=== PATIENT | male | born 1985 | race Hispanic/Latino ===

== ENCOUNTER 2017-06-10 22:05 | Emergency (ER) | payer SELFPAY ==
--- NOTE | 2017-06-10 23:16 | RAD ---
LEFT KNEE FOUR VIEW 06/10/17 HISTORY: Injury. COMPARISON: None. FINDINGS: No significant joint effusion. No acute fracture or malalignment. IMPRESSION: No acute fracture or malalignment. POS: [facility]
[2017-06-10] MEDS ORDERED: Naproxen 500 MG TAB ONE (23:17)
== END 2017-06-10 23:20 | disposition home or self-care (01) ==
LOC: ERS 22:05
DX: S83.92XA Sprain of unspecified site of left knee, initial encounter (principal); W17.89XA Other fall from one level to another, initial encounter

== ENCOUNTER 2017-11-06 09:16 | Outpatient (CLI) | payer OTHER | END 2017-11-06 09:17 | disposition home or self-care (01) | LOC: BICRAD 09:16 | PROVIDERS: ATTEND Internal Medicine | DX: Z02.71 Encounter for disability determination (principal); M51.37 Other intervertebral disc degeneration, lumbosacral region | CPT/HCPCS: 72100 ==

== ENCOUNTER 2017-12-28 20:21 | Emergency (ER) | payer SELFPAY ==
--- NOTE | 2017-12-28 20:53 | RAD ---
RIGHT HAND TWO VIEWS: 12/28/2017 HISTORY: Hand pain. No history of trauma. COMPARISON: 11/22/2014 FINDINGS: Old fractures are seen involving the distal fourth and fifth metacarpals. There is no acute fracture or evidence of dislocation. There is questionable soft tissue swelling near the head of the fifth m etacarpal. No subcutaneous gas or radiopaque foreign body. IMPRESSION: 1. Questionable soft tissue swelling. 2. Old fourth and fifth metacarpal fractures. 3. No acute fracture is seen. POS: [facility]
== END 2017-12-28 21:45 | disposition home or self-care (01) ==
LOC: ERS 20:21
DX: M67.441 Ganglion, right hand (principal)

== ENCOUNTER 2020-08-25 22:03 | Emergency (ER) | payer SELFPAY ==
[2020-08-25] MEDS ORDERED: Lidocaine 1% PF 5 ML VIAL ONE (22:19)
== END 2020-08-25 23:16 | disposition home or self-care (01) ==
LOC: ERS 22:03
DX: L03.115 Cellulitis of right lower limb (principal)
CPT/HCPCS: 10160

== ENCOUNTER 2021-03-05 16:20 | Emergency (ER) | payer SELFPAY ==
[2021-03-06 01:35] LABS: SARS-CoV-2 PCR by NAA Not Detected (NotDetected)
== END 2021-03-05 18:04 | disposition home or self-care (01) ==
LOC: ERS 16:20
DX: R50.9 Fever, unspecified (principal); Z20.822 Contact with and (suspected) exposure to COVID-19
CPT/HCPCS: 99283; U0003; U0005

== ENCOUNTER 2023-02-13 12:14 | Emergency (ER) | payer SELFPAY | END 2023-02-13 13:53 | disposition home or self-care (01) | LOC: ERS 12:14 | DX: U07.1 COVID-19 (principal) | CPT/HCPCS: 99283 ==

== ENCOUNTER 2023-08-16 09:21 | Emergency (ER) | payer OTHER, SELFPAY ==
[2023-08-16] MEDS ORDERED: Acetaminophen 500 MG TAB ONE (09:58)
== END 2023-08-16 13:04 | disposition home or self-care (01) ==
LOC: ERS 09:21
DX: S00.83XA Contusion of other part of head, initial encounter (principal); Y04.8XXA Assault by other bodily force, initial encounter
CPT/HCPCS: 70450; 70486; 72125

== ENCOUNTER 2024-07-28 07:50 | Emergency (ER) | payer SELFPAY ==
[2024-07-28] MEDS ORDERED: Dexamethasone 10 MG/ML VIAL ONE (08:07)
== END 2024-07-28 08:20 | disposition home or self-care (01) ==
LOC: ERS 07:50
DX: J01.90 Acute sinusitis, unspecified (principal)
CPT/HCPCS: 96372; 99283; J1100